=== PATIENT | male | born 1935 | race Caucasian/White ===

== ENCOUNTER 2020-01-31 13:18 | Inpatient (IN) | payer BC, MEDICARE ==
[~2020-01-31] VITALS: Ht 175.3 cm; Wt 75.1 kg
[2020-01-31 14:50] VITALS: BP 153/74
[2020-01-31] MEDS ORDERED: CHOL10003 PO (15:31)
[2020-01-31] MEDS ORDERED: IRBE300T8 PO (15:31)
[2020-01-31] MEDS ORDERED: L.AC1CAP6 PO (15:31)
[2020-01-31] MEDS ORDERED: EPLE25TA4 PO (15:31)
[2020-01-31] MEDS ORDERED: ALPR0.5T7 PO (15:31)
[2020-01-31] MEDS ORDERED: VITA1TAB19 PO (15:31)
[2020-01-31] MEDS ORDERED: FAMO20TA7 PO (15:31)
[2020-01-31] MEDS ORDERED: WHEA1POW5 PO (15:31)
[2020-01-31] MEDS ORDERED: MELA1TAB6 PO (15:31)
[2020-01-31] MEDS ORDERED: DUTA1CPM PO (15:31)
[2020-01-31] MEDS ORDERED: ATOR40TA78 PO (15:31)
[2020-01-31] MEDS ORDERED: FLUT9.9S16 NAS (15:31)
[2020-01-31] MEDS ORDERED: CARV3.1212 PO (15:31)
[2020-01-31] MEDS ORDERED: UBID100C41 PO (15:31)
[2020-01-31] MEDS ORDERED: ASPI-496 PO (15:31)
[2020-01-31] MEDS ORDERED: SODIUM CHLORIDE 0.9% 1,000 ML IV SCH (17:30)
[2020-01-31 17:57] LABS: BASOPHILS # (AUTO) 0.02 x10^3/uL (0-0.1); BASOPHILS % (AUTO) 0 % (0-1); EOSINOPHILS # (AUTO) 0.09 x10^3/uL (0-0.4); EOSINOPHILS % (AUTO) 2 % (1-7); LYMPHOCYTES # (AUTO) 1.03 x10^3/uL (1-3.4); LYMPHOCYTES % (AUTO) 19 % (22-44); MD NO; MEAN CORPUSCULAR HGB CONC 34.1 g/dL (33.2-36.2); MEAN CORPUSCULAR VOLUME 96.8 fL (81-97); MEAN PLATELET VOLUME 6.1 fL (7.4-10.4); MONOCYTES % (AUTO) 15 % (2-9); NEUTROPHILS # (AUTO) 3.54 x10^3/uL (1.8-6.8); NEUTROPHILS % (AUTO) 65 % (42-75); PLATELET COUNT 189 x10^3/uL (130-400); RED BLOOD COUNT 3.16 x10^6/uL (4.38-5.82); RED CELL DISTRIBUTION WIDTH 15.9 % (9.4-14.8)
[2020-01-31] MEDS ORDERED: ONDANSETRON 2MG/ML, 2ML IVPush PRN (18:00)
[2020-01-31] MEDS ORDERED: LABETALOL 5MG/ML, 20ML IVPush PRN (18:00)
[2020-01-31] MEDS ORDERED: PROMETHAZINE 25 MG/ML, 1ML IM PRN (18:00)
[2020-01-31 18:03] LABS: ALANINE AMINOTRANSFERASE 33 U/L (12-78); ALBUMIN 2.9 g/dL (3.4-5.0); ANION GAP 4 mmol/L (5-15); CALCIUM 7.7 mg/dL (8.5-10.1); CHLORIDE 106 mmol/L (98-107)
[2020-01-31 18:06] LABS: ALKALINE PHOSPHATASE 70 U/L (45-117); BILIRUBIN,TOTAL 1.4 mg/dL (0.2-1.0); TOTAL PROTEIN 6.2 g/dL (6.4-8.2)
[2020-01-31] MEDS ORDERED: PLEASE ENTER ALLERGIES MC SCH (18:30)
[2020-01-31] MEDS ORDERED: ENOXAPARIN 40 MG/0.4 ML SQ SCH (19:00)
[2020-01-31 19:51] VITALS: BP 160/84
[2020-01-31] MEDS: CARVEDILOL 3.125 MG TABLET PO SCH (21:15)
[2020-01-31] MEDS: POTASSIUM CHLORIDE 40 MEQ in SODIUM CHLORIDE 0.9% 1,000 ML IV SCH (21:15)
[2020-02-01 01:23] VITALS: BP 146/66
[2020-02-01] MEDS ORDERED: OMNIPAQUE 350 MG/ML, 75ML BOTTLE ONE (02:40)
[2020-02-01] MEDS: morphine SULFATE 10 MG/ML, 1ML IVPush PRN ×2 (04:05→10:06)
[2020-02-01 07:21] VITALS: BP 157/85
[2020-02-01 07:21] LABS: BASOPHILS # (AUTO) 0.03 x10^3/uL (0-0.1); BASOPHILS % (AUTO) 0 % (0-1); EOSINOPHILS % (AUTO) 1 % (1-7); LYMPHOCYTES # (AUTO) 1.33 x10^3/uL (1-3.4); LYMPHOCYTES % (AUTO) 17 % (22-44); MD NO; MEAN CORPUSCULAR HEMOGLOBIN 32.5 pg (27.5-34.5); MEAN CORPUSCULAR HGB CONC 32.9 g/dL (33.2-36.2); MEAN CORPUSCULAR VOLUME 98.7 fL (81-97); MEAN PLATELET VOLUME 6.1 fL (7.4-10.4); MONOCYTES % (AUTO) 11 % (2-9); NEUTROPHILS # (AUTO) 5.39 x10^3/uL (1.8-6.8); NEUTROPHILS % (AUTO) 71 % (42-75); PLATELET COUNT 223 x10^3/uL (130-400); RED CELL DISTRIBUTION WIDTH 15.8 % (9.4-14.8)
[2020-02-01 07:43] LABS: ALBUMIN 3.3 g/dL (3.4-5.0); ANION GAP 8 mmol/L (5-15); CALCIUM 7.7 mg/dL (8.5-10.1); CHLORIDE 106 mmol/L (98-107)
[2020-02-01 07:47] LABS: ALANINE AMINOTRANSFERASE 35 U/L (12-78); ALKALINE PHOSPHATASE 81 U/L (45-117); BILIRUBIN,TOTAL 1.5 mg/dL (0.2-1.0); TOTAL PROTEIN 6.9 g/dL (6.4-8.2)
[2020-02-01 08:16] LABS: INTERNATIONAL NORMALIZED RATIO 1.09 (0.93-1.1); PROTHROMBIN TIME 11.6 Seconds (9.6-11.5)
[2020-02-01] MEDS ORDERED: POTASSIUM PHOSPHATE 44 MEQ in SODIUM CHLORIDE 0.9% 500 ML IV ONE (09:00)
[2020-02-01] MEDS ORDERED: HYDROCORTISONE 25 MG SUPP PR ONE (09:00)
[2020-02-01] MEDS: FLUTICASONE NASAL SPRAY 16GM NAS SCH (10:06)
[2020-02-01] MEDS: PANTOPRAZOLE 40 MG IV IVPush SCH (10:06)
[2020-02-01] MEDS: IRBESARTAN 300 MG TABLET PO SCH (10:07)
[2020-02-01] MEDS: EPLERENONE 50 MG TABLET PO SCH (10:07)
[2020-02-01] MEDS: CARVEDILOL 3.125 MG TABLET PO SCH ×2 (10:08→21:01)
[2020-02-01] MEDS ORDERED: FENTANYL PF 100 MCG/2ML IV PRN (11:30)
[2020-02-01] MEDS ORDERED: FENTANYL PF 100 MCG/2ML ONE ×2 (11:54→16:31)
[2020-02-01] MEDS ORDERED: CHLORHEXIDINE 15 ML UDC ONE (12:14)
[2020-02-01] MEDS ORDERED: PROPOFOL 10 MG/ML, 20ML ONE (12:36)
[2020-02-01] MEDS ORDERED: ONDANSETRON 2MG/ML, 2ML ONE (12:36)
[2020-02-01] MEDS ORDERED: DEXAMETHASONE 4 MG/ML, 1ML ONE (12:36)
[2020-02-01] MEDS ORDERED: SUCCINYLCHOLINE 20 MG/ML, 10ML ONE (12:36)
[2020-02-01] MEDS ORDERED: EPHEDRINE 50 MG/ML, 1ML ONE (12:36)
[2020-02-01] MEDS ORDERED: ARTIFICIAL TEARS OINT 3.5 GM EACHEYE PRN (16:30)
[2020-02-01 17:13] VITALS: BP 175/77
[2020-02-01] MEDS ORDERED: POTASSIUM CHLORIDE 40 MEQ in SODIUM CHLORIDE 0.9% 1,000 ML IV SCH (18:35)
[2020-02-01 21:11] VITALS: BP 132/71
[2020-02-02] MEDS: POTASSIUM CHLORIDE 40 MEQ in SODIUM CHLORIDE 0.9% 1,000 ML IV SCH (00:51)
[2020-02-02 02:17] VITALS: BP 115/64
[2020-02-02 06:32] LABS: BASOPHILS # (AUTO) 0.01 x10^3/uL (0-0.1); BASOPHILS % (AUTO) 0 % (0-1); EOSINOPHILS % (AUTO) 0 % (1-7); LYMPHOCYTES # (AUTO) 0.99 x10^3/uL (1-3.4); LYMPHOCYTES % (AUTO) 12 % (22-44); MD NO; MEAN CORPUSCULAR HEMOGLOBIN 32.4 pg (27.5-34.5); MEAN CORPUSCULAR HGB CONC 33.3 g/dL (33.2-36.2); MEAN CORPUSCULAR VOLUME 97.1 fL (81-97); MEAN PLATELET VOLUME 6.2 fL (7.4-10.4); MONOCYTES # (AUTO) 0.41 x10^3/uL (0.2-0.8); MONOCYTES % (AUTO) 5 % (2-9); NEUTROPHILS # (AUTO) 7.07 x10^3/uL (1.8-6.8); NEUTROPHILS % (AUTO) 83 % (42-75); PLATELET COUNT 242 x10^3/uL (130-400); RED CELL DISTRIBUTION WIDTH 15.3 % (9.4-14.8)
[2020-02-02 06:38] LABS: ALBUMIN 3.4 g/dL (3.4-5.0); ANION GAP 7 mmol/L (5-15); CALCIUM 7.6 mg/dL (8.5-10.1); CHLORIDE 105 mmol/L (98-107)
[2020-02-02 06:41] LABS: ALANINE AMINOTRANSFERASE 33 U/L (12-78); ALKALINE PHOSPHATASE 87 U/L (45-117); BILIRUBIN,TOTAL 1.4 mg/dL (0.2-1.0); CREATININE 0.77 mg/dL (0.7-1.3); TOTAL PROTEIN 7.1 g/dL (6.4-8.2)
[2020-02-02 07:12] VITALS: BP 144/79
[2020-02-02] MEDS: FLUTICASONE NASAL SPRAY 16GM NAS SCH (09:00)
[2020-02-02] MEDS: EPLERENONE 50 MG TABLET PO SCH (09:00)
[2020-02-02] MEDS: PANTOPRAZOLE 40 MG IV IVPush SCH (11:01)
[2020-02-02] MEDS: IRBESARTAN 300 MG TABLET PO SCH (11:07)
[2020-02-02] MEDS: CARVEDILOL 3.125 MG TABLET PO SCH (11:08)
[2020-02-02] MEDS ORDERED: SODIUM CHLORIDE 0.9% 1,000 ML IV SCH (11:30)
[2020-02-02 12:49] VITALS: BP 163/82
== END 2020-02-02 15:33 | disposition short-term general hospital (02) | DRG 380 ==
LOC: 4EST 14:47
PROVIDERS: ADMIT Hospitalist; ATTEND Hospitalist
PROC: 0FBG8ZX Excision of Pancreas, Via Natural or Artificial Opening Endoscopic, Diagnostic (ICD-10-PCS; 2020-02-01)
PROC: 0DB98ZX Excision of Duodenum, Via Natural or Artificial Opening Endoscopic, Diagnostic (ICD-10-PCS; 2020-02-01)
PROC: 0DH68UZ Insertion of Feeding Device into Stomach, Via Natural or Artificial Opening Endoscopic (ICD-10-PCS; 2020-02-01)
PROC: BF47ZZZ Ultrasonography of Pancreas (ICD-10-PCS; 2020-02-01)
PROC: 0DB78ZX Excision of Stomach, Pylorus, Via Natural or Artificial Opening Endoscopic, Diagnostic (ICD-10-PCS; principal; 2020-02-01 12:30)
DX: K31.1 Adult hypertrophic pyloric stenosis (principal); E43 Unspecified severe protein-calorie malnutrition; K56.609 Unspecified intestinal obstruction, unspecified as to partial versus complete obstruction; I50.32 Chronic diastolic (congestive) heart failure; E87.1 Hypo-osmolality and hyponatremia; K26.9 Duodenal ulcer, unspecified as acute or chronic, without hemorrhage or perforation; I25.10 Atherosclerotic heart disease of native coronary artery without angina pectoris; E78.5 Hyperlipidemia, unspecified; M48.00 Spinal stenosis, site unspecified; I11.0 Hypertensive heart disease with heart failure; D63.8 Anemia in other chronic diseases classified elsewhere; K21.9 Gastro-esophageal reflux disease without esophagitis; M19.90 Unspecified osteoarthritis, unspecified site; K64.9 Unspecified hemorrhoids; J30.9 Allergic rhinitis, unspecified; F41.9 Anxiety disorder, unspecified; Z90.49 Acquired absence of other specified parts of digestive tract; Z98.49 Cataract extraction status, unspecified eye; Z98.84 Bariatric surgery status; Z85.828 Personal history of other malignant neoplasm of skin; Z79.899 Other long term (current) drug therapy; Z79.82 Long term (current) use of aspirin; Z68.24 Body mass index [BMI] 24.0-24.9, adult
CPT/HCPCS: 36415; 70470; 74018; 80053; 83690; 83735; 84100; 85025; 85610; 87635; 88172; 88173; 88177; 88305; 88307; 93005; G0378; J1100; J1650; J2405; J2704; J3010; J3480; Q9967; C1725; C9113; J0330; J2270; J7030; J7040